=== PATIENT | male | born 1975 | race Two or more races ===

== ENCOUNTER 2021-06-22 15:28 | Emergency (ER) | payer OTHER ==
[2021-06-22 15:47] VITALS: BP 166/95
--- NOTE | 2021-06-22 16:14 | ED Physician Documentation ---
PD HPI OPHTHO - Stated complaint Stated Complaint: RT EYE VISION LOSS - Chief complaint Chief Complaint: Heent - History obtained from History obtained from: Patient - History of Present Illness Timing - onset: Today Timing - duration: Hours (2) Timing - details: Abrupt onset Pain level max: 2 Pain level now: 1 Location: Right Quality / character: No: Itching, Burning, Aching, Throbbing, Sharp Associated symptoms: Redness, Tearing, Decreased vision (blurry). No: Discharge, FB sensation, Photophobia, Double vision, Headache Contributing factors: Wears glasses. No: Exposed to conjunctivitis, Recent URI, FB, UV light (welding etc), Chemical exposure, acid, Chemical exposure, base, Blunt trauma, Penetrating trauma, Wears contacts Similar symptoms before: Has not had sx before - Additional information Additional information: Patient is a 45-year-old male who presents to the emergency department complaining of blurry vision in his right eye. This was started after placing Zaditor eyedrops in his eye. Has never used them before. Has had itching to the eye. No drainage. He has had seasonal allergies before. No fevers. No chills. Does not wear contacts. Does wear glasses. Review of Systems Constitutional: denies: Fever, Chills GI: denies: Vomiting Skin: denies: Rash Musculoskeletal: denies: Neck pain, Back pain Neurologic: denies: Headache PD PAST MEDICAL HISTORY - Past Medical History Past Medical History: No - Past Surgical History Past Surgical History: No - Allergies Allergies/Adverse Reactions: Allergies Allergy/AdvReac Type Severity Reaction Status Date / Time No Known Drug Allergies Allergy Verified 06/22/21 15:42 - Social History Does the pt smoke?: No Does the pt have substance abuse?: No PD ED PE NORMAL - Vitals Vital signs reviewed: Yes - General General: Alert and oriented X 3, No acute distress - HEENT HEENT: PERRL, EOMI, Moist mucous membranes, Other (No abnormal fluorescein uptake in the right eye. No cell and flare on slit-lamp exam evaluation. Pupils equal round reactive to light. Limited funduscopic exam appears normal.) - Neck Neck: Supple, no meningeal sign - Derm Derm: Warm and dry - Neuro Neuro: Alert and oriented X 3 Results - Vitals Vitals: Vital Signs - 24 hr 06/22/21 15:43 Temperature 36.9 C Heart Rate 94 Respiratory 16 Rate Blood Pressure 166/95 H O2 Saturation 100 Oxygen O2 Source Room air PD MEDICAL DECISION MAKING - ED course Complexity details: considered differential, d/w patient ED course: Unclear etiology of the patient's symptoms. No acute findings on evaluation here. We will have him follow-up with ophthalmology tomorrow. Seems to be related to the Zaditor eyedrops. We will have him stop those. He will follow up with ophthalmology tomorrow. Patient counseled regarding signs and symptoms for which I believe and urgent re-evaluation would be necessary. Patient with good understanding of and agreement to plan and is comfortable going home at this time This document was made in part using voice recognition software. While efforts are made to proofread this document, sound alike and grammatical errors may occur. Departure - Departure Disposition: 01 Home, Self Care Clinical Impression: Blurred vision, right eye Condition: Good Instructions: ED Blurred Vision Follow-Up: Lee Lance MD [Provider Admit Priv/Credential] - Tomorrow Comments: Please follow-up with Dr. Lance tomorrow for repeat evaluation of your eye. If your exam tonight is normal. We do not see any foreign bodies in your eye. We do not see any inflammation. This could be due to the drops that you placed in your eye. Please stop using the Zaditor drops for now.
== END 2021-06-22 16:51 | disposition home or self-care (01) ==
LOC: EDBD → ED 15:28
DX: H53.8 Other visual disturbances (principal)
CPT/HCPCS: 99281